=== PATIENT | female | born 1955 ===

== ENCOUNTER 2023-06-18 13:26 | Outpatient (CLI) | payer OTHER, BC | END 2023-06-18 13:37 | disposition home or self-care (01) | LOC: MRI 13:26 | PROVIDERS: ATTEND Orthopaedic Surgery | DX: S83.200A Bucket-handle tear of unspecified meniscus, current injury, right knee, initial encounter (principal); M25.561 Pain in right knee; M25.562 Pain in left knee | CPT/HCPCS: 73718 ==